=== PATIENT | male | born 1940 | race Caucasian/White ===

== ENCOUNTER → 2021-11-19 | Outpatient (CLI) | payer MEDICARE, OTHER ==
[~2021-11-19] MED LIST: IOPAMIDOL 370 MG/ML 100 ML INFUS..BTL INJ ONE; SODIUM CHLORIDE 0.9% 250ML 250 ML ONE
[2021-11-19 12:47] LABS: CREATININE, SERUM 1.01 mg/dL (0.72-1.25)
== END ==
LOC: CT 11:42
PROVIDERS: ATTEND Urology
DX: R31.0 Gross hematuria (principal); C67.8 Malignant neoplasm of overlapping sites of bladder
CPT/HCPCS: 36415; 74178; 82565; 84520; J7050; Q9967